=== PATIENT | female | born 1980 ===

== ENCOUNTER 2018-05-08 00:56 | Outpatient (CLI) | payer MEDICAID | END 2018-05-08 23:59 | disposition home or self-care (01) | LOC: DIABETIC 00:56 | PROVIDERS: ATTEND Surgery | DX: E66.01 Morbid (severe) obesity due to excess calories (principal); I10 Essential (primary) hypertension; G47.30 Sleep apnea, unspecified | CPT/HCPCS: 97802 ==

== ENCOUNTER 2018-06-05 01:46 | Outpatient (CLI) | payer MEDICAID | END 2018-06-05 23:59 | disposition home or self-care (01) | LOC: DIABETIC 01:46 | PROVIDERS: ATTEND Surgery | DX: Z71.3 Dietary counseling and surveillance (principal); E66.01 Morbid (severe) obesity due to excess calories | CPT/HCPCS: 97802 ==

== ENCOUNTER 2018-07-23 00:20 | Outpatient (CLI) | payer MEDICAID | END 2018-07-23 23:59 | disposition home or self-care (01) | LOC: DIABETIC 00:20 | PROVIDERS: ATTEND Surgery | DX: Z71.3 Dietary counseling and surveillance (principal); E66.01 Morbid (severe) obesity due to excess calories ==